=== PATIENT | female | born 1965 | race Caucasian/White ===

== ENCOUNTER 2017-04-15 16:50 | Emergency (ER) | payer SELFPAY ==
[~2017-04-15 16:50] MED LIST: AMBIEN10 MG PO; FLEXARIL; FLEXERIL10 MG PO; IBUPROFEN200 M1 PO; LEVAQUIN250 MG PO; NAPROSYN500 MG PO; NORCO 5/325 TAB1 TAB PO; PERCOCET 5/3251 TAB; PERCOCET PO; SEROQUEL; VENTOLIN17 GM IH
[2017-04-15] MEDS ORDERED: TRAZODONE HCL50 M1 PO (17:31)
[2017-04-15] MEDS ORDERED: KLONOPIN1 M1 PO (17:31)
[2017-04-15] MEDS ORDERED: [UNRECOGNIZED DRUG - OTHER] (17:32)
[2017-04-15] MEDS ORDERED: NORCO 5-325 TA1 EACH PO (18:12)
== END 2017-04-15 18:24 ==
LOC: EDMED 16:50
DX: S20.212A Contusion of left front wall of thorax, initial encounter (principal); Z88.5 Allergy status to narcotic agent; F17.200 Nicotine dependence, unspecified, uncomplicated; Y04.0XXA Assault by unarmed brawl or fight, initial encounter